=== PATIENT | female | born 1995 | race Caucasian/White ===

== ENCOUNTER 2017-09-14 09:05 | Emergency (ER) | payer BC ==
[~2017-09-14] VITALS: Ht 160 cm; Wt 106.6 kg
[2017-09-14] MEDS ORDERED: IBUPROFEN200 MG PO (09:20)
[2017-09-14] MEDS ORDERED: ROBAXIN-750750 MG PO (09:48)
[2017-09-14] MEDS ORDERED: PREDNISONE20 MG PO (09:48)
[2017-09-14] MEDS ORDERED: NORCO 5-325 TA1 EACH PO (09:48)
== END 2017-09-14 10:06 | disposition home or self-care (01) ==
LOC: ED 09:05
DX: M54.42 Lumbago with sciatica, left side (principal); F17.200 Nicotine dependence, unspecified, uncomplicated
CPT/HCPCS: 99283

== ENCOUNTER 2018-07-16 00:33 | Emergency (ER) | payer BC ==
[~2018-07-16] VITALS: Ht 160 cm; Wt 105.7 kg
[~2018-07-16 00:33] MED LIST: IBUPROFEN200 MG PO; NORCO 5-325 TA1 EACH PO; PREDNISONE20 MG PO; ROBAXIN-750750 MG PO
--- OUTSIDE RECORDS SUMMARY | 2018-07-16 00:36 | XMS ---
PreManage Notification: JOSE PARRISH Security Electronics Installer Events No recent Security Events currently on file [place] [facility] [place] ADAM FORD Nurse Practitioner: [facility] Current PHONE: [phone] [facility] Primary Care 09/01/2011-[facility] PHONE: [phone] [facility] Primary Care [facility] PHONE: [phone] Guidelines Source: [facility] Guidelines Date: 03/22/2016 Care Recommendation: [facility] EMERGENCY DEPARTMENT CARE RECOMMENDATIONS FOR JOSE APreston PARRISH, : 1995: -Refer patient back to primary care provider for management of chronic conditions or advise establishment of care with a primary care provider (see ED Transition Coordinator for resources). -*If patient has not been able to establish with a primary care provider, provide brochure for [facility] walk-in clinics in [facility]. -Consider the patient's recent work-ups when ordering lab and imaging tests. Ionizing radiation studies, particularly CT scans of the head or abdomen shouldbe considered on a case by case basis, with careful review of new or changed symptoms and recent work-ups. -If patient is homeless, provide copies of Homeless Resources from the Emergency Department web pages. -During every ED visit, confirm patients current home/mobile numbers in case need to contact for laboratory results or for an degreaser operator call. E.D. VISIT COUNT (12 MO.) [address] [facility] TOTAL 2 NOTE: Visits indicate total known visits. ED/C VISIT TRACKING (12 MO.) 07/16/2018 00:34 [facility] TYPE: Emergency COMPLAINT: - FACIAL RASH/VOMITING 09/14/2017 09:06 [facility] TYPE: Emergency COMPLAINT: - LEG PAIN/NUMBNESS DIAGNOSES: - Lumbago with sciatica, left side - Nicotine dependence, unspecified, uncomplicated - Anesthesia of skin INPATIENT VISIT TRACKING (12 MO.) No inpatient visits to display in this time frame [email or web address]
[2018-07-16] MEDS ORDERED: KEFLEX500 MG PO (02:39)
== END 2018-07-16 03:03 | disposition home or self-care (01) ==
LOC: ED 00:33
DX: N39.0 Urinary tract infection, site not specified (principal); R11.2 Nausea with vomiting, unspecified; F32.9 Major depressive disorder, single episode, unspecified
CPT/HCPCS: 80053; 81001; 83690; 84703; 85025; 87502; 87880; 96361; 96374; 99284-25; J2405; J7030

== ENCOUNTER 2019-06-29 11:30 | Emergency (ER) | payer BC ==
[~2019-06-29] VITALS: Ht 160 cm; Wt 105.7 kg
[~2019-06-29 11:30] MED LIST changes: +KEFLEX500 MG PO
--- OUTSIDE RECORDS SUMMARY | 2019-06-29 11:34 | XMS ---
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 No recent Security Events currently on file CRITERIA MET - [facility] [place] CARE PROVIDERS [facility]Center: Federally Qualified 09/01/2011-Current [facility] ([facility]) PHONE: [phone] [facility]: Federally Qualified 09/01/2011-Current [facility] ([facility]) PHONE: Unknown ADAM FORD Nurse Practitioner: [facility] Current PHONE: [phone] [facility] Primary Care 09/01/2011-Current [facility] PHONE: [phone] [facility] PHONE: [phone] Care Guidelines exist for the following facilities: [facility] ( 10/20/2018 ) Care History Medical/Surgical 07/16/2018 [facility] - PATIENT DOES NOT HAVE A PCP- PATIENT CANCELLED APT TO ESTABLISH CARE ON WITH DR CASTANEDA. - PLEASE REFER PATIENT TO THE WALK IN CLINIC FOR NON EMERGENT MEDICAL NEEDS. - PLEASE PROVIDE W CONTACT NUMBER [phone]. E.D. VISIT COUNT (12 MO.) 2 [facility] TOTAL 2 NOTE: Visits indicate total known visits. ED/UCC VISIT TRACKING (12 MO.) 06/29/2019 11:30 [facility] TYPE: Emergency COMPLAINT: - FEVER, COUGH 07/16/2018 00:34 [facility] TYPE: Emergency COMPLAINT: - FEVER FACIAL RASH/VOMITING DIAGNOSES: - Major depressive disorder, single episode, unspecified - Fever, unspecified - Urinary tract infection, site not specified - Nausea with vomiting, unspecified INPATIENT VISIT TRACKING (12 MO.) No inpatient visits to display in this time frame [email or web address]
== END 2019-06-29 11:45 | disposition home or self-care (01) ==
LOC: ED 11:30
DX: R05 Cough (principal)

== ENCOUNTER 2020-03-21 13:46 | Emergency (ER) | payer BC ==
[~2020-03-21] VITALS: Ht 160 cm; Wt 106.6 kg
[2020-03-21] MEDS ORDERED: CRUTCH1 EACH MISC (15:52)
[2020-03-21] MEDS ORDERED: NORCO 5-325 TA1 EACH PO (15:52)
== END 2020-03-21 16:11 | disposition home or self-care (01) ==
LOC: ED 13:46
DX: S86.912A Strain of unspecified muscle(s) and tendon(s) at lower leg level, left leg, initial encounter (principal); X58.XXXA Exposure to other specified factors, initial encounter
CPT/HCPCS: 73560; 93971; 99284-25

== ENCOUNTER 2022-01-04 17:54 | Emergency (ER) | payer OTHER ==
[~2022-01-04] VITALS: Ht 160 cm; Wt 109.3 kg
[~2022-01-04 17:54] MED LIST changes: +CRUTCH1 EACH MISC
== END 2022-01-04 19:45 | disposition home or self-care (01) ==
LOC: ED 17:54
DX: S60.222A Contusion of left hand, initial encounter (principal); W18.30XA Fall on same level, unspecified, initial encounter; Z23 Encounter for immunization
CPT/HCPCS: 73130; 90471; 90715; 99283-25; A9270